=== PATIENT | female | born 1970 | race Caucasian/White ===

== ENCOUNTER → 2021-03-08 | Outpatient (CLI) | payer OTHER, SELFPAY | END | disposition home or self-care (01) | PROVIDERS: PCP Family Medicine; Referring Provider Family Medicine; Visit Provider Family Medicine | DX: U07.1 COVID-19 (principal) | CPT/HCPCS: 87635; U0005; U0003 ==

== ENCOUNTER → 2022-05-12 | Outpatient (CLI) | payer OTHER, SELFPAY ==
[2022-05-12 12:39] LABS: Vitamin B12 553 pg/mL (211-911); Vitamin D,25 Hydroxy 25.8 ng/mL
[2022-05-12 13:01] LABS: Anion Gap 6 (5-15); BUN 14 mg/dL (7-18); Calcium,Total 9.4 mg/dL (8.5-10.1); Chloride 108 mmol/L (98-107); Cholesterol 234 mg/dL (200); Creatinine, Serum 0.74 mg/dL (0.55-1.02); EST Glomerular Filtration Rate 89 mL/min (>60); Est Glom Filt Rate - Afr Amer 108 mL/min (>60); Glucose 96 mg/dL (74-106); High Density Lipoprotein 40 mg/dL; Potassium 3.9 mmol/L (3.5-5.1); Sodium Level 140 mmol/L (136-145); Triglycerides 151 mg/dL; Very Low Density Lipoprotein 30 mg/dL (5-40)
== END | disposition home or self-care (01) ==
LOC: MFPLAB 09:45
PROVIDERS: PCP Nurse Practitioner Family; Referring Provider Nurse Practitioner Family; Visit Provider Nurse Practitioner Family
DX: Z00.00 Encounter for general adult medical examination without abnormal findings (principal); Z13.1 Encounter for screening for diabetes mellitus; Z13.220 Encounter for screening for lipoid disorders
CPT/HCPCS: 36415; 80048; 80061; 82306; 82607

== ENCOUNTER → 2022-06-22 | Outpatient (CLI) | payer OTHER, SELFPAY ==
--- NOTE | 2022-06-22 07:18 | BI_ITS ---
MAMMOGRAPHY - BILATERAL SCREENING REASON FOR EXAM: Female, 51 years old. Routine annual screening examination. PERTINENT HISTORY: Non-contributory. TECHNIQUE: Digital bilateral breast adriane (3D mammographic acquisition) in the CC and MLO projections. 2-D mediolateral oblique (MLO) and craniocaudad (CC) views of both breasts were obtained. CAD: Full Field Digital Mammography with Computer Added Detection was performed. COMPARISON: None. Baseline examination. FINDINGS: Breast Composition: The breasts are heterogeneously dense, which may obscure small masses. There are no dominant masses or suspicious calcifications. There is a asymmetrical mildly prominent right retroareolar duct. Further assessment with ultrasound is recommended. No other significant abnormalities are identified. BI/SCRN MAMM (CAD)W/ADRIANE BILAT IMPRESSION: Further imaging evaluation recommended, as described above. (E) Recall Side: Right Breast ASSESSMENT CATEGORY: BIRADS Category 0: Incomplete. Need additional imaging evaluation. A letter regarding these results will be sent to the patient by the facility within 30 days. Approximately 10% of breast cancers are not detected by mammography. A normal mammogram should not delay biopsy of a clinically suspicious abnormality. Electronically Signed: Wilner Calhoun, at 13:00 EST ,
== END | disposition home or self-care (01) ==
LOC: OPBI 07:15
PROVIDERS: PCP Nurse Practitioner Family; Visit Provider Nurse Practitioner Family
DX: Z12.31 Encounter for screening mammogram for malignant neoplasm of breast (principal)
CPT/HCPCS: 77063; 77067

== ENCOUNTER → 2022-06-30 | Outpatient (CLI) | payer OTHER, SELFPAY ==
--- NOTE | 2022-06-30 08:07 | US_ITS ---
STUDY: ULTRASOUND BREAST - RIGHT REASON FOR EXAM: Female, 51 years old. Abnormal screening mammogram. TECHNIQUE: Axial and longitudinal images of the RIGHT breast were performed with a high resolution ultrasound transducer. # OF IMAGES: 19 COMPARISON: Comparison is made with prior mammogram dated 06/22/2022. FINDINGS: RIGHT Breast: The retroareolar region was examined with ultrasound. The mammographic abnormality corresponds to a 1 cm x 0.6 cm x 0.8 cm cyst. US/Breast Limited Unilateral IMPRESSION: The mammographic abnormality or spines to a 1 cm x 0.6 cm x 0.8 cm cyst. ASSESSMENT CATEGORY: BIRADS Category 2: Benign. A letter regarding these results will be sent to the patient by the facility within 30 days. Electronically Signed: Quan Knight MD at 14:30 EST ,
== END | disposition home or self-care (01) ==
PROVIDERS: PCP Nurse Practitioner Family; Visit Provider Nurse Practitioner Family
DX: R92.8 Other abnormal and inconclusive findings on diagnostic imaging of breast (principal)
CPT/HCPCS: 76642

== ENCOUNTER → 2023-01-02 | Outpatient (CLI) | payer OTHER, SELFPAY ==
[2023-01-02 12:26] LABS: Absolute Lymphocyte Count 1.73 X10^3/uL (0.83-4.51); Basophil# 0.03 X10^3/uL; Basophil% 0.5 % (0-1); Eosinophils% 3.1 % (0-5); Hematocrit 41.6 % (37-47); Hemoglobin 13.6 g/dL (12.0-15.0); Lymphocyte # 1.73 X10^3/ul (0.83-4.51); Mean Corp Hgb Conc 32.7 g/dL (32-36); Mean Corpuscular Hgb 29.5 pg (27.0-32.0); Mean Corpuscular Volume 90.2 fL (81-99); Mean Platelet Vol. 10.1 fl (6.2-12.0); Monocyte# 0.47 X10^3/uL; Monocyte% 7.3 % (0-10); NRBC Flagged by Analyzer 0 % (0-5); Neutrophil # 3.96 X10^3/uL (2.7-7.7); Neutrophil % 61.9 % (47-70); Platelet Count 241 K/mm3 (150-450); RBC Distribution Width CV 11.9 % (11.6-14.6); RBC Distribution Width SD 39.1 fl (35.1-43.9); Red Blood Count 4.61 M/mm3 (4.2-5.4); White Blood Count 6.4 K/mm3 (4.4-11.0)
[2023-01-02 12:41] LABS: Vitamin B12 360 pg/mL (211-911)
[2023-01-02 12:55] LABS: ALB/GLOB Ratio 0.9 RATIO (0.9-2.4); AST(SGOT) 16 U/L (15-37); Alanine Aminotransfer ALT/SGPT 33 U/L (13-56); Albumin, Serum 3.5 g/dL (3.2-5.0); Alkaline Phosphatase 134 U/L (45-117); Anion Gap 5 (5-15); BUN 16 mg/dL (7-18); BUN/Creat Ratio 19.4 RATIO (10-20); Calcium,Total 9.4 mg/dL (8.5-10.1); Chloride 109 mmol/L (98-107); Creatinine, Serum 0.82 mg/dL (0.55-1.02); EST Glomerular Filtration Rate 78 mL/min (>60); Est Glom Filt Rate - Afr Amer 94 mL/min (>60); Ferritin 46 ng/mL (8-252); Globulin 3.9 g/dL (2.2-4.2); Glucose 97 mg/dL (74-106); Protein, Total 7.4 g/dL (6.4-8.2); Sodium Level 138 mmol/L (136-145); Thyroid Stim Hormone (TSH) 1.39 uIU/mL (0.358-3.74)
== END | disposition home or self-care (01) ==
LOC: MFPLAB 10:12
PROVIDERS: PCP Nurse Practitioner Family; Visit Provider Family Medicine
DX: R20.0 Anesthesia of skin (principal)
CPT/HCPCS: 36415; 80053; 82607; 82728; 84443; 85025

== ENCOUNTER → 2023-02-02 | Outpatient (CLI) | payer OTHER, SELFPAY ==
[2023-02-09 14:09] LABS: HPV APTIMA, High Risk Negative (Negative)
== END | disposition home or self-care (01) ==
LOC: LABSPEC 16:29
PROVIDERS: PCP Family Medicine; Referring Provider Nurse Practitioner Women's Health; Visit Provider Nurse Practitioner Women's Health
DX: N89.8 Other specified noninflammatory disorders of vagina (principal)
CPT/HCPCS: 87070; 87205; 87624; 88175; G0145

== ENCOUNTER → 2023-11-09 | Outpatient (CLI) | payer OTHER, SELFPAY ==
--- NOTE | 2023-11-09 13:33 | US_ITS ---
ACR Level 3 findings have been noted. An addendum which confirms receipt of the report will follow. INDICATION: AUB EXAMINATION: Ultrasound US Transvaginal Non-OB TECHNIQUE: Transvaginal (for optimal evaluation of the adnexa) pelvic ultrasound was performed. Grayscale, spectral waveform, and color flow Doppler evaluation of the adnexa. COMPARISON: None. FINDINGS: UTERUS: Anteverted. The uterus measures 8.2 cm in length.. There is a 2.3 cm hypoechoic fibroid. The endometrial stripe is heterogeneous and measures 1.7 cm in AP diameter which is thickened for a postmenopausal patient. RIGHT OVARY: Not visualized. LEFT OVARY: Measures 3.3 x 2.2 x 2.2 cm. Non-enlarged, normal echogenicity. There is normal arterial inflow and venous outflow present in the left ovary. FREE FLUID: None. US/Transvaginal Non- IMPRESSION: Heterogeneous and thickened endometrium for a postmenopausal patient. Differential includes endometrial hyperplasia and endometrial carcinoma. Recommend EYEGLASS LENS GRINDER consult. Fibroid uterus. Electronically Signed: Eduardo Tan MD at 23:33 EDT ,
== END | disposition home or self-care (01) ==
PROVIDERS: Referring Provider Nurse Practitioner Women's Health; Visit Provider Nurse Practitioner Women's Health
DX: N93.9 Abnormal uterine and vaginal bleeding, unspecified (principal)
CPT/HCPCS: 76830

== ENCOUNTER → 2023-12-20 | Outpatient (CLI) | payer OTHER, SELFPAY ==
--- NOTE | 2023-12-20 | EMB_PTH ---
PATIENT: VARSHA AUGUSTE LOC: [facility] U#:[id number] AGE/SX: 53/F ROOM: RE12/20/[address]: MELISSA Grajeda : 1970 BED: DIS: 12/20/2023 SPEC #: [id number] RECD: 12/20/23 11:55 STATUS: CHAD SRINIVASAN #: [id number] ELLIE: 12/20/23 00:[address]: Rachel Oshea NP DEPT: SURGICAL PATHOLOGY RECD BY: Le Ann Tissues: Endometrium, NOS Procedures: Surgery Specimen Level IV HEADER OPERATION: Endometrial biopsy PRE-OP DIAGNOSIS: Abnormal uterine bleeding TISSUE SUBMITTED: Endometrial lining MICROSCOPIC DIAGNOSIS Endometrium, biopsy: Disordered proliferative endometrium. RYANNE/ 12/21/2023 MICROSCOPIC DESCRIPTION Slides are reviewed. GROSS DESCRIPTION Received is one container labeled with the patient's name and not further designated. The specimen consists of multiple fragments of samuels- hemorrhagic soft tissue measuring in aggregate 2.5 x 1.5 x 0.1cm. The entire specimen is submitted in one cassette. RYANNE/ 12/20/2023 TC:5 CPT:62752
== END | disposition home or self-care (01) ==
LOC: LABSPEC 12:06
PROVIDERS: Referring Provider Nurse Practitioner Women's Health; Visit Provider Nurse Practitioner Women's Health
DX: N93.9 Abnormal uterine and vaginal bleeding, unspecified (principal)
CPT/HCPCS: 88305

== ENCOUNTER → 2024-05-06 | Outpatient (CLI) | payer OTHER, SELFPAY ==
[2024-05-06 12:21] LABS: Absolute Lymphocyte Count 1.84 X10^3/uL (0.83-4.51); Basophil# 0.04 X10^3/uL; Basophil% 0.7 % (0-1); Eosinophil# 0.29 X10^3/uL; Eosinophils% 5.1 % (0-5); Hematocrit 42.1 % (37-47); Hemoglobin 13.5 g/dL (12.0-15.0); Lymphocyte # 1.84 X10^3/ul (0.83-4.51); Lymphocyte % 32.5 % (19-41); Mean Corp Hgb Conc 32.1 g/dL (32-36); Mean Corpuscular Volume 90.5 fL (81-99); Mean Platelet Vol. 10.2 fl (6.2-12.0); Monocyte# 0.48 X10^3/uL; Monocyte% 8.5 % (0-10); NRBC Flagged by Analyzer 0 % (0-5); Platelet Count 235 K/mm3 (150-450); RBC Distribution Width CV 13.2 % (11.6-14.6); Red Blood Count 4.65 M/mm3 (4.2-5.4); White Blood Count 5.7 K/mm3 (4.4-11.0)
[2024-05-06 12:43] LABS: Vitamin D,25 Hydroxy 23.9 ng/mL
[2024-05-06 13:12] LABS: AST(SGOT) 17 U/L (15-37); Alanine Aminotransfer ALT/SGPT 30 U/L (13-56); Albumin, Serum 3.5 g/dL (3.2-5.0); Alkaline Phosphatase 129 U/L (45-117); Anion Gap 7 (5-15); BUN 12 mg/dL (7-18); BUN/Creat Ratio 17.5 RATIO (10-20); Chloride 110 mmol/L (98-107); Cholesterol 224 mg/dL (200); Creatinine, Serum 0.69 mg/dL (0.55-1.02); EST Glomerular Filtration Rate 96 mL/min (>60); Est Glom Filt Rate - Afr Amer 116 mL/min (>60); Globulin 3.6 g/dL (2.2-4.2); Glucose 98 mg/dL (74-106); High Density Lipoprotein 54 mg/dL; Potassium 4.1 mmol/L (3.5-5.1); Protein, Total 7.1 g/dL (6.4-8.2); Sodium Level 142 mmol/L (136-145); Triglycerides 131 mg/dL; Very Low Density Lipoprotein 26 mg/dL (5-40)
== END | disposition home or self-care (01) ==
LOC: MFPLAB 09:53
PROVIDERS: PCP Family Medicine; Visit Provider Family Medicine
DX: R07.89 Other chest pain (principal); E55.9 Vitamin D deficiency, unspecified; Z13.220 Encounter for screening for lipoid disorders; Z13.1 Encounter for screening for diabetes mellitus
CPT/HCPCS: 36415; 80053; 80061; 82306; 84443; 85025

== ENCOUNTER → 2025-04-02 | Outpatient (CLI) | payer BC, SELFPAY ==
[2025-04-02 12:28] LABS: Hematocrit 40.0 % (37-47); Hemoglobin 13.5 g/dL (12.0-15.0); Immature Granulocytes Count 0.010 X10^3/uL (0.0-0.0); Mean Corp Hgb Conc 33.8 g/dL (32-36); Mean Corpuscular Volume 88.1 fL (81-99); Mean Platelet Vol. 10.0 fl (6.2-12.0); NRBC Flagged by Analyzer 0 % (0-5); Platelet Count 260 K/mm3 (150-450); RBC Distribution Width CV 12.6 % (11.6-14.6); RBC Distribution Width SD 40.6 fl (35.1-43.9); Red Blood Count 4.54 M/mm3 (4.2-5.4); White Blood Count 5.9 K/mm3 (4.4-11.0)
== END | disposition home or self-care (01) ==
PROVIDERS: PCP Family Medicine; Visit Provider Nurse Practitioner Women's Health
DX: N95.0 Postmenopausal bleeding (principal)
CPT/HCPCS: 36415; 84443; 85025

== ENCOUNTER → 2025-04-24 | Outpatient (CLI) | payer BC, SELFPAY ==
--- NOTE | 2025-04-24 12:56 | US_ITS ---
PROCEDURE: US/Pelvic w/ Transvaginal
== END | disposition home or self-care (01) ==
LOC: US 12:55
PROVIDERS: PCP Family Medicine; Referring Provider Nurse Practitioner Women's Health; Visit Provider Nurse Practitioner Women's Health
DX: N95.0 Postmenopausal bleeding (principal)
CPT/HCPCS: 76830; 76856

== ENCOUNTER → 2025-05-14 | Outpatient (CLI) | payer BC, SELFPAY ==
--- OUTSIDE RECORDS SUMMARY | 2025-05-14 15:37 | XMS RPT_ITS | CCD ---
Author Organization [facility] Care Team Providers Care Artisan Plasterer Name Role Phone MELISSA Mims Referring Provider [phone] Dorie GARCIAS, MELISSA Ramos Attending Provider [phone] DO Lety Parr Primary Care Provider Mario Rae MD Primary Care Physician Mario Rae MD Referring Provider [place] COPPERSMITH HELPER-C, Rachel Attending Physician [phone] Butch Chalon Primary Care Unavailable Rachel Oshea Attending Unavailable Rachel Oshea Attending Unavailable DorieRachel Referring Unavailable Butch, Chalgriselda Primary Care Unavailable Friend, Barrett Attending Unavailable Butch, Chalon Primary Care Unavailable Btuch, Chalon Primary Care Unavailable Butch, Chalon Referring Unavailable Rachel Oshea Attending Unavailable Allergies Allergy Classification Reported Allergen(s) Allergy Type Date of Onset Reaction(s) Facility (1 source) Penicillins Allergy to substance 04-02-2025 Rash [facility] (1 source) Penicillins Drug allergy (disorder) 04-02-2025 [facility] Repository Medications Current Medications Medication Drug Class(es) Dates Sig (Normalized) Sig (Original) [id number] 200 actuat albuterol 0.09 mg/actuat metered dose inhaler (2 sources) beta2-Adrenergic Agonist Start: 02-02-2023 Start: 02-02-2023 take 1 puff(s) by in halation every six hours Albuterol Sulfate Active 2 PUFF INHALATION EVERY 6 HOURS February 02, 2023 12:00am Fluticasone Propion-Salmeter ol (2 sources) Corticosteroid, beta2-Adrenergic Agonist Start: 02-02-2023 Start: 02-02-2023 Fluticasone Pr opion-Salmeterol (Advair Diskus) 100-50 mcg/dose blister with device Active 1 INH INHALATION TWICE A DAY February 02, 2023 12:00am montelukast 10 mg oral tablet (2 sources) Leukotriene Receptor Antagonist Start: 02-02-2023 take 1 tablet by mouth once daily norethindrone acetate 5 mg oral tablet (2 sources) Start: 11-15-2023 End: 04-02-2025 Problems Problem Classification Problem Date Documented Date Episodic/Chronic Asthma (2 sources) Asthma; Translations: [Unspecified asthma, uncomplicated] 02-02-2023 Chronic Menopausal disorders (3 sources) Postmenopausal bleeding; Translations: [Postmenopausal bleeding] Onset: 05-06-2025 04-02-2025 Chronic Comment on above: deferred 2nd EMB. 2023 disordered EMB, did not follow up or take progesterone. Rpt US ordered. Previous lining 1.7cmRx aygestinProbable hysteroscopy D&C w/SM Menstrual disorders (1 source) Menometrorrhagia; Translations: [Excessive and frequent menstruation with irregular cycle] 12-20-2023 Chronic Comment on above: US:lining 1.7cm, fib roid 2.3cm. EMB: Osteoarthritis (2 sources) Arthritis; Translations: [Unspecified osteoarthritis, unspecified site] 02-02-2023 Chronic Other female genital disorders (1 source) Abnormal uterine bleeding; Translations: [Abnormal uterine and vaginal bleeding, unspecified] 02-02-2023 Chronic Other female genital disorders (1 source) Abnormal uterine and vaginal bleeding, unspecified; Translations: [Unspecified disorders of menstruation and other abnormal bleeding from female genital tract] 02-02-2023 Chronic Other female genital disorders (1 source) Unspecified condition associated with female genital organs and menstrual cycle; Translations: [Other specified symptoms associated with female genital organs] 02-02-2023 Episodic Results Test Name Value Interpretation Reference Range Facility Pelvic w/ Transvaginalon Pelvic w/ Transvaginal [facility] [address] [place], [place] [address] Pelvic w/ Transvaginal MR#: [id number] Acct: [id number] Name: VARSHA AUGUSTE Rep #: [id number] : 1970 F 54 From: Quan jack MD PCP: Dr. Mario Rae MD Status: REG CLI Study: Pelvic w/ Transvaginal Date of Exam: 04/24/25 Exam# [id number] Ordering Dr: Rachel Oshea NP COPPERSMITH HELPER -C PROCEDURE: PELVIC W/ TRANSVAGINAL REASON FOR EXAM: PMB TECHNIQUE: Procedure Code: [id number] Modality: US Procedure: PELVIC W/ TRANSVAGINAL COMPARISON: None FINDINGS: LMP: April 19, 2025. Measurements: Uterus: 11.7 cm x 7.3 cm x 5.8 cm with a volume of 258.3 mL Endometrial Thickness: 21 mm. It is hyperechoic. Heterogeneous in appearance. Right Ovary: 3.7 cm x 2.8 cm x 2.5 cm with a volume of 13.7 mL. Left Ovary: Not visualized. Delete tab TRANSABDOMINAL: Uterus: Enlarged uterus. Heterogeneous echotexture. Nabothian cyst. Endometrium: Endometrium is thickened measuring 21 mm. Right ovary: Normal size and echotexture. Left ovary: Not visualized. Other: No large pelvic mass identified. Transvaginal sonography was performed to better visualize the endometrium. TRANSVAGINAL: Uterus: Enlarged heterogeneous uterus. Endometrium: Thickened measuring 21 mm. It is hyperechoic and heterogeneous. Right ovary: Normal size and echotexture. Left ovary: Not visualized. Other adnexal findings: None. Cul-de-sac: No free intraperitoneal fluid identified. Tenderness: No tenderness US/Pelvic w/ Transvaginal IMPRESSION: Heterogeneous uterus. Thickened endometrium measuring 21 mm. Reading Location: [id number] CC: COPPERSMITH HELPER-Barbara Oshea; Dr. Mario Rae MD Banana Carrier: Signed Normal [facility] CBC W/Diff, Automatedon 10-0 Absolute Lymph 1.62 X10 3/uL Normal 0.83-4.51 [facility] Comment on above: Performed By: #### L 501.9520, L100.0100 #### [facility] [address], [address] Absolute Neut 3.6 X10 3/uL Normal 2.0-7.7 [facility] Comment on above: Performed By: #### L 501.9520, L100.0100 #### [facility] [address] [place], [address] Basophils/100 WBC (Bld) 0.3 % Normal 0-1 [facility] Comment on above: Performed By: #### L 501.9520, L100.0100 #### [facility] [address] [place], [address] Eosinophils/100 WBC (Bld) 4.6 % Normal 0-5 [facility] Comment on above: Performed By: #### L 501.9520, L100.0100 #### [facility] [address] [place], [address] Erythrocyte distribution width (RBC) [Ratio] 12.6 % Normal 11.6-14.6 [facility] Comment on above: Performed By: #### L 501.9520, L100.0100 #### [facility] [address] [place], [address] Hematocrit (Bld) [Volume fraction] 40.0 % Normal 37-47 [facility] Comment on above: Performed By: #### L 501.9520, L100.0100 #### [facility] [address] [place], [address] Hemoglobin (Bld) [Mass/Vol] 13.5 g/dL Normal 12.0-15.0 [facility] Comment on above: Performed By: #### L 501.9520, L100.0100 #### [facility] [address] [place], [address] IG% 0.200 Normal 0.0-0.9 [facility] Comment on above: Result Comment: IG% - Immature Granulocytes (promyelocytes, myelocytes and metamyelocytes) > 1% indicates that a LEFT SHIFT is Present. Performed By: #### L 501.9520, L100.0100 #### [facility] [address] [place], [address] Lymphocytes/100 WBC (Bld) 27.4 % Normal 19-41 [facility] Comment on above: Performed By: #### L 501.9520, L100.0100 #### [facility] [address] [place], [address] MCH (RBC) [Entitic mass] 29.7 pg Normal 27.0-32.0 [facility] Comment on above: Performed By: #### L 501.9520, L100.0100 #### [facility] [address] [place], [address] MCHC (RBC) [Mass/Vol] 33.8 g/dL Normal 32-36 [facility] Comment on above: Performed By: #### L 501.95, L100.0100 #### [facility] [address] [place], [address] MCV (RBC) [Entitic vol] 88.1 fL Normal 81-99 [facility] Comment on above: Performed By: #### L 501.95, L100.0100 #### [facility] [address] [place], [address] Monocytes/100 WBC (Bld) 6.6 % Normal 0-10 [facility] Comment on above: Performed By: #### L 501.9520, L100.0100 #### [facility] [address] [place], [address] Neutrophils/100 WBC (Bld) 60.9 % Normal 47-70 [facility] Comment on above: Performed By: #### L 501.9520, L100.0100 #### [facility] [address] [place], [address] Nucleated RBC (Bld) [#/Vol] 0 10*3/uL Normal 0-5 [facility] Comment on above: Performed By: #### L 501.9520, L100.0100 #### [facility] [address] [place], [address] Platelet mean volume (Bld) [Entitic vol] 10.0 fL Normal 6.2-12.0 [facility] Comment on above: Performed By: #### L 501.9520, L100.0100 #### [facility] [address] [place], [address] Platelets (Bld) [#/Vol] 260 10*3/uL Normal 150-450 [facility] Comment on above: Performed By: #### L 501.9520, L100.0100 #### [facility] [address] [place], [address] RBC (Bld) [#/Vol] 4.54 10*6/uL Normal 4.2-5.4 [facility] Comment on above: Performed By: #### L 501.9520, L100.0100 #### [facility] [address] [place], [address] RDW SD 40.6 fl Normal 35.1-43.9 [facility] Comment on above: Performed By: #### L 501.9520, L100.0100 #### [facility] [address] [place], [address] WBC (Bld) [#/Vol] 5.9 10*3/uL Normal 4.4-11.0 [facility] Comment on above: Performed By: #### L 501.9520, L100.0100 #### [facility] [address] [place], [address] Electron Gun Assembler Office Visit Reporton 04-02-2025 Electron Gun Assembler Office Visit Report [facility] [address], [address] [place] [address] OFFICE VISIT Date of Service: 04/02/25 MR#: [id number] Acct: [id number] Name: VARSHA AUGUSTE Rep #: [id number] : 1970 Provider: MELISSA tello Age/Sex: 54/F Location: [facility] Status: Signed Intake Vital Signs 12/20/23 11:08 04/02/25 11:45 04/02/25 11:51 Height 5 ft 7 in 5 ft 7 in 5 ft 7 in Weight: 262 lb 3 oz BMI 41.1 BP 142/82 H Intake Visit Reasons: PMB - see note Chief Complaint: PMB Profile Saw Setup Operator Required: No Is patient in pain?: No Allergies Penicillins (PCN) Allergy (Unknown, Verified 04/02/25 11:44) Rash Medications ???Medication ???Instructions ???Recorded ???Confirmed ???Type albuterol sulfate 90 mcg/actuation 2 puff inhalation Q6H PRN 04/02/25 History aerosol inhaler fluticasone 100 mcg-salmeterol 50 1 inh inhalation BID 02/02/2302/17 History mcg/dose blistr powdr for inhalation (Advair Diskus) montelukast 10 mg tablet 10 mg PO DAILY 02/02/23 04/02/25 H istory norethindrone acetate 5 mg tablet 5 mg PO .COMPLEX #45 tabs 5 04/02/25 Rx Is last menstrual period known: No Post menopausal: Yes Patient : No : No PFSH PFSH Medical History Arthritis Asthma Family History Father Heart disease Mother Hypertension Kidney disease Social History household members: spouse number of children: 4 current occupational status: employed 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 Date Name GA/Weeks Outcome Route Bth Weight Gen Labor Lgth Anesthesia Del Locatn Provider FOB Unknown Mohinder 1995 Unknown Mikal 1998 Unknown Selena 2002 Unknown Lien 2004 HPI PMB - see note Details: VARSHA AUGUSTE is a 54 year old who presents for postmenopausal bleeding X 2 weeks. Varies in amount but very heavy last pm and saturated clothing/pad <1 hour. She was seen November 2023: US indicated endometrial lining 1.7cm, small fibroid. EMB was disordered. She was to take aygestin and misunderstood and since no further bleeding never took it. She has had no other bleeding until this time. ROS Const Constitutional: Reports system reviewed and no additional complaints, except as documented Eyes Eyes: Reports system reviewed and no additional complaints, except as documented GI GI: Denies abdominal pain or change in bowel habits : Reports as per HPI Exam Const General: cooperative and no acute distress Orientation: oriented x3 Resp Effort Inspection: normal respiratory effort General: bladder normal to palpation External Female Exam: normal external appearance and normal appearance of the urethra Urethra: normal appearance of the urethra Speculum Exam - Vagina: normal appearance of the vagina, no lesions, vaginal bleeding (moderate amount, dark color) and nontender Speculum Exam - Cervix: normal appearance of the cervix Bimanual Exam- Vagina Uterus: normal bimanual exam, uterine size normal, bladder normal to palpation, uterine shape normal, uterine mobility normal and non-tender Bimanual Exam- Adnexa, other: normal adnexae, no masses and non-tender OB/External Speculum: vaginal bleeding (moderate amount, dark color) Speculum Exam: vaginal bleeding (moderate amount, dark color) Coding Level of Care Code Off vis,est,level 3 Diagnoses Postmenopausal bleeding N95.0 Assessment and Plan Assessment and Plan (1) Postmenopausal bleeding: Status: Acute Comment: deferred 2nd EMB. 11/2023 disordered EMB, did not follow up or take progesterone. Rpt US ordered. Previous lining 1.7cm Rx aygestin Probable hysteroscopy D C w/SM Orders: Orders Pelvic w/ Transvaginal Today N95.0 - Postmenopausal bleeding CBC W/Diff, Automated Today N95.0 - Postmenopausal bleeding Thyroid Stim Hormone (TSH) Today N95.0 - Postmenopausal bleeding Medications: Changed From norethindrone acetate (Aygestin) 5 mg PO tid until bleeding stops X 24 hr then bid to finish Rx 45 tabs 0RF To norethindrone acetate 5 mg PO tid until bleeding stops X 24 hr then bid to finish Rx 45 tabs 0RF Plan Rx Aygestin Repeat ul (more content not included)... Normal [facility] Thyroid Stim Hormone (TSH)on 04-02-2025 TSH 1.240 uIU/mL Normal 0.300-4.200 [facility] Comment on above: Performed By: #### L 501.9520, L100.0100 #### [facility] [address] [place], [place], [id number] Gram stain for investigation of transfusion reactionOrdered By: Rachel Oshea on 02-02-2023 Microscopic observation Gram stain Nom (Unsp spec) [facility] Thin prep Papanicolaou smear with manual screeningOrdered By: Rachel Dorie on 02-02-2023 Thin prep Papanicolaou smear with manual screening [facility] Absolute lymphocyte countOrd ered By: Lety Parr on 01-02-2023 Lymphocytes Auto (Unsp spec) [#/Vol] 1.73 10*3/uL 0.83-4.51 [facility] Basophil percentageOrdered B y: Lety Parr on 01-02-2023 Basophils/100 WBC (Bld) 0.5 % 0-1 [facility] Bilirubin [Mass/Vol] 0.40 mg/dL 0.20-1.00 [facility] Comment on above: For patients on eltr ombopag therapy, use of [place] TBIL is not recommended. Chloride [Moles/Vol] 109 mmol/L 98-107 [facility] Eosinophils/100 WBC (Bld) 3.1 % 0-5 [facility] Glucose [Mass/Vol] 97 mg/dL 74-106 [facility] Neutrophils (Bld) [#/Vol] 4.0 10*3/uL 2.0-7.7 [facility] Neutrophils/100 WBC (Bld) 61.9 % 47-70 [facility] Potassium [Moles/Vol] 4.0 mmol/L 3.5-5.1 [facility] Protein [Mass/Vol] 7.4 g/dL 6.4-8.2 [facility] Sodium [Moles/Vol] 138 mmol/L 136-145 [facility] WBC (Bld) [#/Vol] 6.4 10*3/uL 4.4-11.0 [facility] Blood erythrocytes count (nu mber/volume)Ordered By: Lety Parr on 01-02-2023 RBC (Bld) [#/Vol] 4.61 10*6/uL 4.2-5.4 [facility] Blood hemoglobin measurement (mass/volume)Ordered By: Lety Parr on 01-02-2023 Hemoglobin (Bld) [Mass/Vol] 13.6 g/dL 12.0-15.0 [facility] Blood lymphocytes/100 leukoc ytesOrdered By: Lety Parr on 01-02-2023 Lymphocytes/100 WBC (Bld) 27.0 % 19-41 [facility] Blood monocytes/100 leukocyt esOrdered By: Lety Parr on 01-02-2023 Monocytes/100 WBC (Bld) 7.3 % 0-10 [facility] Blood platelet mean volumeOr dered By: Lety Parr on 01-02-2023 Platelet mean volume (Bld) [Entitic vol] 10.1 fL 6.2-12.0 [facility] Determination of erythrocyte mean corpuscular volume (MCV)Ordered By: Lety Parr on 01-02-2023 MCV (RBC) [Entitic vol] 90.2 fL 81-99 [facility] Hematocrit Auto (Bld) [Volum e fraction]Ordered By: Lety Parr on 01-02-2023 Hematocrit (Bld) [Volume fraction] 41.6 % 37-47 [facility] - Chemistry and C hemistry - challengeOrdered By: Lety Parr on 01-02-2023 ALP [Catalytic activity/Vol] 134 U/L 45-117 [facility] ALT [Catalytic activity/Vol] 33 U/L 13-56 [facility] CO2 [Moles/Vol] 24.0 mmol/L 21.0-32.0 [facility] Cobalamin (Vitamin B12) [Mass/Vol] 360 pg/mL 211-911 [facility] Globulin (S) [Mass/Vol] 3.9 g/dL 2.2-4.2 [facility] Urea nitrogen/Creatinine [Mass ratio] 19.4 mg/mg 10-20 [facility] - Hematology and Cell countsOrdered By: Lety Parr on 01-02-2023 Erythrocyte distribution width (RBC) [Entitic vol] 39.1 fL 35.1-43.9 [facility] Erythrocyte distribution width (RBC) [Ratio] 11.9 % 11.6-14.6 [facility] Immature granulocytes/100 WBC (Bld) 0.200 % 0.0-0.9 [facility] Comment on above: IG% - Immature Granu locytes (promyelocytes, myelocytes and metamyelocytes) > 1% indicates that a LEFT SHIFT is Present. MCH (RBC) [Entitic mass] 29.5 pg 27.0-32.0 [facility] Nucleated RBC/100 WBC (Bld) [Ratio] 0 % 0-5 [facility] MCHC Auto (RBC) [Mass/Vol]Or dered By: Lety Parr on 01-02-2023 MCHC (RBC) [Mass/Vol] 32.7 g/dL 32-36 [facility] No Panel InformationOrdered By: Lety Parr on 01-02-2023 Estimated GFR (MDRD) Amer 94 mL/min >60 [facility] Comment on above: GFR Calc Estimated GFR (MDRD) Non-Af Amer 78 mL/min >60 [facility] Comment on above: Non- GFR Calc Thyroid Stimulating Hormone (TSH) 1.39 uIU/mL 0.358-3.74 [facility] Platelets bldOrdered By: Kelsie Parr on 01-02-2023 Platelets (Bld) [#/Vol] 241 10*3/uL 150-450 [facility] Serum or plasma albumin angie urement (mass/volume)Ordered By: Lety Parr on 01-02-2023 Albumin [Mass/Vol] 3.5 g/dL 3.2-5.0 [facility] Serum or plasma albumin/glob ulin mass ratioOrdered By: Lety Parr on 01-02-2023 Albumin/Globulin [Mass ratio] 0.9 {ratio} 0.9-2.4 [facility] Serum or plasma calcium angie urement (mass/volume)Ordered By: Lety Parr on 01-02-2023 Calcium [Mass/Vol] 9.4 mg/dL 8.5-10.1 [facility] Serum or plasma creatinine m easurement (mass/volume)Ordered By: Lety Parr on 01-02-2023 Creatinine [Mass/Vol] 0.82 mg/dL 0.55-1.02 [facility] Comment on above: The validity of the calculated GFR & GFRAA in patients over 70 years has not been determined. Clinical correlation is essential. Serum or plasma ferritin jeremy surement (mass/volume)Ordered By: Lety Parr on 01-02-2023 Ferritin [Mass/Vol] 46 ng/mL 8-252 [facility] Serum or plasma urea nitroge n measurement (mass/volume)Ordered By: Lety Parr on 01-02-2023 Urea nitrogen [Mass/Vol] 16 mg/dL 7-18 [facility] Thin prep Papanicolaou smear with manual screeningOrdered By: Lety Parr on 01-02-2023 Thin prep Papanicolaou smear with manual screening 16 U/L 15-37 [facility] Thin prep Papanicolaou smear with manual screening 5 5-15 [facility] Basophil percentageon 2021 Chloride [Moles/Vol] 108 mmol/L 98-107 [facility] Work Phone: Cholesterol [Mass/Vol] 234 mg/dL <200 [facility] Work Phone: Comment on above: <200 mg/dL Desirable 200-240 mg/dL Borderline >240 mg/dL High Risk Glucose [Mass/Vol] 96 mg/dL 74-106 [facility] Work Phone: Potassium [Moles/Vol] 3.9 mmol/L 3.5-5.1 [facility] Work Phone: Sodium [Moles/Vol] 140 mmol/L 136-145 [facility] Work Phone: Triglyceride [Mass/Vol] 151 mg/dL <199 [facility] Work Phone: Comment on above: The drugs N-Acetylcy steine and Metamizole may falsely depress this assay.Serum Triglycerides Reference Interval Normal <150 mg/dL Borderline high 150 - 199 mg/dL High 200 - 499 mg/dL Very High > or = 500 mg/dL Laboratory - Chemistry and C hemistry - challengeon 05-12-2022 CO2 [Moles/Vol] 26.0 mmol/L 21.0-32.0 [facility] Work Phone: Cobalamin (Vitamin B12) [Mass/Vol] 553 pg/mL 211-911 [facility] Work Phone: Urea nitrogen/Creatinine [Mass ratio] 19.0 mg/mg 10-20 [facility] Work Phone: No Panel Informationon 05-12 Estimated GFR (MDRD) Amer 108 mL/min >60 [facility] Work Phone: Comment on above: GFR Calc Estimated GFR (MDRD) Non-Af Amer 89 mL/min >60 [facility] Work Phone: Comment on above: Non- GFR Calc Vitamin D 25-Hydroxy 25.8 ng/mL [facility] Work Phone: Comment on above: Vitamin D 25(OH) Sta tus Range Deficiency <20 ng/mL (50nmol/L) Insufficiency 20 - 30 ng/mL (50 - 75 nmol/L) Sufficiency 30 - 100 ng/mL (75 - 250 nmol/L) Toxicity >100 ng/mL (>250 nmol/L) Serum or plasma calcium angie urement (mass/volume)on 05-12-2022 Calcium [Mass/Vol] 9.4 mg/dL 8.5-10.1 [facility] Work Phone: Serum or plasma cholesterol in HDL measurement (mass/volume)on 05-12-2022 Cholesterol in HDL [Mass/Vol] 40 mg/dL >40 [facility] Work Phone: Comment on above: The drugs N-Acetylcy steine and Metamizole may falsely depress this assay. Reference Range HDL <40 mg/dL Low HDL Cholesterol HDL >or= 60 mg/dL High HDL Cholesterol Serum or plasma cholesterol in VLDL measurement (mass/volume)on 05-12-2022 Cholesterol in VLDL [Mass/Vol] 30 mg/dL 5-40 [facility] Work Phone: Serum or plasma creatinine m easurement (mass/volume)on 05-12-2022 Creatinine [Mass/Vol] 0.74 mg/dL 0.55-1.02 [facility] Work Phone: Comment on above: The validity of the calculated GFR & GFRAA in patients over 70 years has not been determined. Clinical correlation is essential. Serum or plasma low density lipoprotein (LDL) cholesterol measurement (mass/volume)on 05-12-2022 Cholesterol in LDL [Mass/Vol] 164 mg/dL 0-130 [facility] Work Phone: Serum or plasma urea nitroge n measurement (mass/volume)on 05-12-2022 Urea nitrogen [Mass/Vol] 14 mg/dL 7-18 [facility] Work Phone: Thin prep Papanicolaou smear with manual screeningon 05-12-2022 Thin prep Papanicolaou smear with manual screening 6 5-15 [facility] Work Phone: Vital Signs Date Time Vital Sign Value Performing Clinician Jacobi hua 04-02-2025 11:51-0400 Body height 170.18 cm Mario Rae MD Work Phone: [facility] 04-02-2025 11:45-0400 Body mass index (BMI) [Ratio] 41.1 kg/m2 Mario Rae MD Work Phone: [facility] 04-02-2025 11:45-0400 Body weight 118.92 kg Mario Rae MD Work Phone: [facility] 04-02-2025 11:45-0400 Diastolic blood pressure 82 mm[Hg] Mario Rae MD Work Phone: [facility] 04-02-2025 11:45-0400 Systolic blood pressure 142 mm[Hg] Mario Rae MD Work Phone: [facility] 02-02-2023 14:21-0400 Body height 170.18 cm COPPERSMITH HELPER-C Donna Yehudajosselin Work Phone: [facility] 02-02-2023 14:21-0400 Body mass index (BMI) [Ratio] 41.8 kg/m2 COPPERSMITH HELPER-C Donna Mims Work Phone: [facility] 02-02-2023 14:21-0400 Body weight 121.16 kg COPPERSMITH HELPER-C Donna Mims Work Phone: [facility] 02-02-2023 14:21-0400 Diastolic blood pressure 86 mm[Hg] COPPERSMITH HELPER-C Donna Mims Work Phone: [facility] 02-02-2023 14:21-0400 Systolic blood pressure 134 mm[Hg] COPPERSMITH HELPER-C Donna Mims Work Phone: [facility] Encounters Encounter Date Encounter Type Care Provider Facility Start: 07-21-2025 ambulatory Barrett Pete Facility :[facility] Start: 04-24-2025 End: 04-24-2025 ambulatory Rachel Oshea Facility:[facility] Start: 04-02-2025 End: 04-02-2025 Patient encounter procedure Rachel Oshea COPPERSMITH HELPER-C -[facility] Work Phone: Start: 04-02-2025 End: 04-02-2025 ambulatory Mario Rae MD Work Phone: -[facility] Start: 04-02-2025 End: 04-02-2025 ambulatory Mario Rae Facility:[facility] Start: 02-02-2023 End: 02-02-2023 ambulatory COPPERSMITH HELPER-Barbara Mims Work Phone: [facility] Work Phone: Start: 02-02-2023 End: 02-02-2023 Patient encounter procedure COPPERSMITH HELPER-Barbara Mims Work Phone: [facility]-Laboratory, Specimen Work Phone: Start: 02-02-2023 End: 02-02-2023 Patient encounter procedure COPPERSMITH HELPER-Barbara Mims Work Phone: [facility] Work Phone: Start: 01-02-2023 End: 01-02-2023 Patient encounter procedure COPPERSMITH HELPER-Barbara Mims Work Phone: [facility] Start: 06-30-2022 End: 06-30-2022 ambulatory [facility] Work Phone: Start: 06-30-2022 End: 06-30-2022 Patient encounter procedure [facility] Start: 06-22-2022 End: 06-22-2022 ambulatory [facility] Work Phone: Start: 06-22-2022 End: 06-22-2022 Patient encounter procedure [facility] Start: 05-12-2022 End: 05-12-2022 ambulatory [facility] Work Phone: Start: 05-12-2022 End: 05-12-2022 [facility] Procedures Date Procedure Procedure Detail Performing Clinician Start: 02-02-2023 Cytopathology proced ure, preparation of smear, genital source COPPERSMITH HELPER-Barbara Mims Work Phone: Start: 02-02-2023 Investigation of tra nsfusion reaction COPPERSMITH HELPER-Barbara Mims Work Phone: Start: 06-30-2022 Ultrasonography of breast Start: 12-28-2022 Screening mammography Plan of Treatment Date Care Activity Detail Author Start: 04-02-2025 CBC W Auto Different ial panel - Blood [facility] Start: 04-02-2025 Thyroid stimulating hormone measurement [facility] Start: 02-02-2023 Liquid based cervica l cytology screening [facility] Erythrocyte mean cor puscular volume determination [facility] Hematocrit [Volume F raction] of Blood [facility] Hemoglobin [Mass/volume] in Blood [facility] Leukocytes [#/volume] in Blood [facility] Mean corpuscular hem oglobin concentration determination [facility] Mean corpuscular hem oglobin determination [facility] MG Breast - bilateral Screening [facility] Neutrophil count [facility] Neutrophil percent d ifferential count [facility] Path report.final Dx Spec [facility] Platelets [#/volume] in Blood [facility] Red blood cell count [facility] Red cell distributio n width determination [facility] Pelvis [facility] Pelvis [facility] Pelvis transvaginal [facility] Payers Date Payer Category Payer Unknown [id number] 2025 Self-pay [id number] Unknown [id number] Unknown [facility] KAL [id number] Unknown [id number] Unknown [id number] Unknown [id number] [id number] Unknown [id number] Social History Date Type Detail Facility Tobacco smoking stat [facility] Unknown if ever smoked [facility] Work Phone: Start: 1970 Sex Assigned At Female [facility] Start: 02-02-2023 [facility] if [facility] smoked [facility] Start: 02-02-2023 [facility] Never smoked tobacco (finding) [facility] Sex Female [facility] Progress note 04-02-2025 Note Date & Type Note Facility 04-02-2025 Progress note [facility] Evaluation note Note Date & Type Note Facility Evaluation note No assessment information availa ble [facility] Work Phone: Evaluation note Note Date & Type Note Facility Evaluation note Diagnosis Onset Date Abnormal uterine bleeding (AUB) acute Encounter for routine gyneco logical examination noneactive Vaginal burning noneactive [facility] Work Phone: Evaluation note Note Date & Type Note Facility Evaluation note Diagnosis Onset Date Resolution Postmenopausal bleeding acute O ctober 2024 11:44am [facility] Work Phone: Progress note Note Date & Type Note Facility Progress note Note Date/Time April 02, 2025 12:15pm [facility] [address] [place] [address], [address] [place] [address] OFFICE VISIT Date of Service: 04/02/25 MR#: [id number] Acct: [id number] Name: VARSHA AUGUSTE Rep #: [id number] : 1970 Provider: MELISSA Oshea Age/Sex: 54/F Location: [facility] Status: Signed Intake Vital Signs 12/20/23 11:08 04/02/25 11:45 04/02/25 11:51 Height 5 ft 7 in 5 ft 7 in 5 ft 7 in Weight: 262 lb 3 oz BMI 41.1 BP 142/82 H Intake Visit Reasons: PMB - see note Chief Complaint: PMB Profile Saw Setup Operator Required: No Is patient in pain?: No Allergies Penicillins (PCN) Allergy (Unknown, Verified 04/02/25 11:44) Rash Medications ?Medication ?Instructions ?Recorded ?Confirmed ?Type albuterol sulfate 90 mcg/actuation 2 puff inhalation Q 6H PRN 02/02/23 04/02/25 History aerosol inhaler fluticasone 100 mcg-salmeterol 50 1 inh inhalation BID 02/02/23 04/02/25 History mcg/dose blistr powdr for inhalation (Advair Diskus) montelukast 10 mg tablet 10 mg PO DAILY 02/02/2302/17 History norethindrone acetate 5 mg tablet 5 mg PO .COMPLEX #45 tabs 04/02/25 04/02/25 Rx Is last menstrual period known: No Post menopausal: Yes Patient : No : No PFSH PFSH Medical History Arthritis Asthma Family History Father Heart disease Mother Hypertension Kidney disease Social History household members: spouse number of children: 4 current occupational status: employed 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 Date Name GA/Weeks Outcome Route Bth Weight Infant Gen Labor Lgth Anesthesia Del Locatn Provider FOB Unknown Mohinder 1995 Unknown Mikal 1998 Unknown Selena 2002 Unknown Lien 2004 HPI PMB - see note Details: VARSHA AUGUSTE is a 54 year old who presents for postmenopausal bleeding X 2 weeks. Varies in amount but very heavy last pm and saturated clothing/pad <1 hour. She was seen November 2023: US indicated endometrial lining 1.7cm, small fibroid. EMB was disordered. She was to take aygestin and misunderstood and since no further bleeding never took it. She has had no other bleeding until this time. ROS Const Constitutional: Reports system reviewed and no additional complaints, except as documented Eyes Eyes: Reports system reviewed and no additional complaints, except as documented GI GI: Denies abdominal pain or change in bowel habits : Reports as per HPI Exam Const General: cooperative and no acute distress Orientation: oriented x3 Resp Effort & Inspection: normal respiratory effort General: bladder normal to palpation External Female Exam: normal external appearance and normal appearance of the urethra Urethra: normal appearance of the urethra Speculum Exam - Vagina: normal appearance of the vagina, no lesions, vaginal bleeding (moderate amount, dark color) and nontender Speculum Exam - Cervix: normal appearance of the cervix Bimanual Exam- Vagina & Uterus: normal bimanual exam, uterine size normal, bladder normal to palpation, uterine shape normal, uterine mobility normal and non-tender Bimanual Exam- Adnexa, other: normal adnexae, no masses and non-tender OB/External & Speculum: vaginal bleeding (moderate amount, dark color) Speculum Exam: vaginal bleeding (moderate amount, dark color) Coding Level of Care Code Off vis,est,level 3 Diagnoses Postmenopausal bleeding N95.0 Assessment and Plan Assessment and Plan (1) Postmenopausal bleeding: Status: Acute Comment: deferred 2nd EMB. 11/2023 disordered EMB, did not follow up or take progesterone. Rpt US ordered. Previous lining 1.7cm Rx aygestin Probable hysteroscopy D&C w/SM Orders: Orders Pelvic w/ Transvaginal Today N95.0 - Postmenopausal bleeding CBC W/Diff, Automated Today N95.0 - Postmenopausal bleeding Thyroid Stim Hormone (TSH) Today N95.0 - Postmenopausal bleeding Medications: Changed From norethindrone acetate (Aygestin) 5 mg PO tid until bleeding stops X 24 hr then bid to finish Rx 45 tabs 0RF To norethindrone acetate 5 mg PO tid until bleeding stops X 24 hr then bid to finish Rx 45 tabs 0RF Plan Rx Aygestin Repeat ultrasound ordered TSH and CBC today Consulted with Dr Vasquez:will defer EMB and once we have US results, plan hysterscopy D&C with her. 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) Reason for Visit Abnormal uterine ble eding (AUB) Encounter for routine gynecological examination Vaginal burning Chief Complaint Admit Date PMB - see note April 02, 2025 11 :44am Reason for Visit Admit Date Postmenopausal bleeding April 02 11:44am Family History No Family History Records Found Relationship Condition Age at Onset Recorded Date/T ranjeet father Cardiac disease Unknown mother Hypertension Unknown Kidney disorder Unknown Summary Purpose Advance Directives No Advanced Directives Records Found Additional Source Comments Goals (unrecognized section and content) Goals may be documented in a n alternate sectionGoals may be documented in an alternate sectionGoals may be documented in an alternate sectionGoals may be documented in an alternate sectionGoals may be documented in an alternate section Care Teams (unrecognized sec tion and content) Team Status: Active Member Role Status Benedicto Parr DO Primary Care Provider Active Team Status: Inactive Member Role Status MELISSA Tyler Referring Provider Active Rachel Oshea NP, NP-C Attending Provider Active Lety Parr DO Primary Care Provider Active Team Status: Inactive Member Role Status MELISSA Tyler Primary Care Provider Active Lety Parr DO Attending Provider Active Team Status: Inactive Member Role Status Benedicto Parr DO Primary Care Provider Active Rachel Oshea NP, NP-C Attending Provider, Referring Provider Active Team Status: Active Member Role/Relationship Status Benedicto Rae MD Primary care physician Active Team Status: Inactive Member Role/Relationship Status Benedicto Rae MD Primary care physician Active S tart: April 02, 2025 End: April 02, 2025 Mario Rae MD Referring Provider Active Start : April 02, 2025 End: April 02, 2025 Rachel Oshea NP, NP-C Attending physician Active Start: April 02, 2025 End: April 02, 2025 Team Status: Active Member Role/Relationship Status Benedicto Rae MD Primary care physician Active S tart: April 02, 2025 Rachel Oshea NP, COPPERSMITH HELPER-C Attending physician Active Start: April 02, 2025 INFORMATION SOURCE (unrecogn ized section and content) DATE CREATED AUTHOR 05/07/2025 [facility] FOR RECORDS PERTAINING TO PATIENTS WHO ARE OR HAVE BEEN ENROLLED IN A CHEMICAL DEPENDENCY/SUBSTANCEABUSE PROGRAM, SOME INFORMATION MAY BE OMITTED. This clinical summary was aggregated from multiple sources. Caution should be exercised in using it in the provision of clinical care. This summary normalizes information from multiple sources, and as a consequence, information in this document may materially change the coding, format and clinical context of patient data. In addition, data may be omitted in some cases. CLINICAL DECISIONS SHOULD BE BASED ON THE PRIMARY CLINICAL RECORDS. [employer] provides no warranty or guarantee of the accuracy or completeness of information in this document.
[2025-05-14 17:44] LABS: Follicle Stimulating Hormone 5.2 mIU/mL
[2025-05-17 22:07] LABS: Anti-Mullerian Hormone,Serum < 0.015 ng/mL (.)
== END | disposition home or self-care (01) ==
PROVIDERS: Obstetrics & Gynecology; PCP Family Medicine; Visit Provider Family Medicine
DX: N95.0 Postmenopausal bleeding (principal); N92.1 Excessive and frequent menstruation with irregular cycle
CPT/HCPCS: 36415; 82670; 83001; 83516

== ENCOUNTER 2025-06-24 12:03 | Day surgery (SDC) | payer BC, SELFPAY ==
--- NOTE | 2025-06-23 22:33 | HP.PCM_ITS ---
History and Physical Vital Signs 04/02/2511:51 05/14/2512:55 05/14/2512:56 Height 5 ft 7 in 5 ft 7 in 5 ft 7 in Weight: 258 lb 7 oz BMI 40.4 BP 131/68 H Intake Visit Reasons: Consult PMB Welfare Administrator Required: No Is patient in pain?: No Allergies Penicillins (PCN) Allergy (Unknown, Verified 05/14/25 12:55) Rash Medications ?Medication ?Instructions ?Recorded ?Confirmed ?Type albuterol sulfate 90 mcg/actuation 2 puff inhalation Q6H PRN 02/02/2305/14 History aerosol inhaler fluticasone 100 mcg-salmeterol 50 1 inh inhalation BID 02/02/23 05/14/25 H istory mcg/dose blistr powdr for inhalation (Advair Diskus) norethindrone acetate 5 mg tablet 5 mg PO .COMPLEX #45 tabs 05/05/2505/14 Rx Is last menstrual period known: No Post menopausal: Yes Patient : No : No PFSH Medical History Arthritis Asthma Surgical History (Updated 05/14/25 @ 13:42 by Rachel Patricio) S/P dilatation and curettage Family History Father Heart disease Mother Hypertension Kidney disease Social History household members: spouse number of children: 4 current occupational status: employed 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 Postmenopausal Bleeding - Reports two episodes of significant bleeding after more than a year of amenorrhea, both occurring during periods of high stress. - First episode occurred the day of her son's wedding, requiring both a tampon and a pad; bleeding was so heavy that it soaked through both and dripped down her legs. - Second episode occurred recently while moving out of her house and [place] [employer] [place]; bleeding was heavy with clot passage and interfered with daily activities. - Both episodes were followed by prolonged periods (over a year) without bleeding. - Currently experiencing light brown, clear discharge but no active bleeding. - Endometrial biopsy in November 2023 showed disordered proliferative endometrium. - Endometrial thickness measured at 15-20 mm. - Normal Pap smear in 2022. Menstrual History - Last menstrual period was over a year before the first episode of postmenopausal bleeding. Past Surgical History - D&C following a miscarriage during her first ; experienced severe pain and passed a mass about a week later, requiring emergency room visit. Family History - Mother had cervical cancer in her 60s. Current Medications and Supplements - Recently completed a course of medication to stop the most recent episode of heavy bleeding. Past Medical History - Asthma - Arthritis Social History - with children. - Youngest child is in culinary school. - Currently moving out of her house and refinishing hardwood floors, which she believes is contributing to her stress and asthma symptoms. - Reports difficulty with weight management, especially challenging due to her family's eating habits and her daughter's culinary pursuits. - Scheduled for knee replacement surgery but is delaying it until she loses weight. Subjective Sections: PMHx - Asthma - Arthritis PSHx - D&C Social Hx - Relationship status: - Number of children: 3 - Diet habits: Reports difficulty managing weight due to frequent cooking at home ROS: Respiratory: (+) wheezing Gastrointestinal: (-) change in bowel habits Genitourinary: (+) vaginal discharge, (+) urinary urgency, (+) urinary frequency, (+) urinary incontinence Female Reproductive History Menopausal Symptoms: No night sweats History 5 Elective abortions Hx Para 4 Spontaneous abortions Hx # Term Pregnancies Ectopic pregnancies Hx # Pregnancies Multiple births # of living children 4 Past Pregnancies Del. Date Name GA/Weeks Outcome Route Bth Weight Infant Gen Labor Lgth Anesthesia Del Locatn Provider FOB Unknown Mohinder 1995 Unknown Mikal 1998 Unknown Selena 2002 Unknown Lien 2004 ROS Const Constitutional: Denies fatigue, night sweats, weight gain or weight loss ENT ENT: Reports system reviewed and no additional complaints, except as documented Cardio Card: Denies chest pain Resp Resp: Denies cough or dyspnea GI GI: Reports as per HPI; Denies abdominal pain, constipation, nausea or vomiting : Reports urinary incontinence and urinary urgency; Denies nipple discharge, urinary frequency, urinary hesitancy, vaginal discharge, vaginal dryness, vaginal odor or vaginal pruritus Musc Musc: Denies arthralgias, back pain or muscle weakness Skin Skin/Breast: Denies alopecia, change in hair, dry skin, breast mass, breast pain, breast skin changes or nipple discharge Neuro Neuro: Reports system reviewed and no additional complaints, except as documented Psych Psych: Reports system reviewed and no additional complaints, except as documented Endo Endo: Denies cold intolerance, excessive sweating, heat intolerance or polydipsia Gadiel/Lymph Hematologic/Lymphatic: Denies easy bleeding, Denies easy bruising and Denies lymphadenopathy Exam Const General: cooperative, healthy appearing, comfortable, no acute distress and well developed Orientation: alert HENTN Head: normal to inspection and normocephalic Ears: hearing grossly normal bilaterally and external ears normal Nose: external nose normal and nares normal Face and sinus: normal facial exam Neck Neck: normal visual inspection, no lymphadenopathy and trachea midline Thyroid: thyroid normal Chest Chest palpation & inspection: normal inspection of the chest Resp Effort & Inspection: normal respiratory effort Auscultation: clear to auscultation bilaterally Cardio Rate: regular rate Rhythm: regular rhythm Heart Sounds: S1 normal and S2 normal GI Inspection: normal to inspection and non-distended Palpation: soft and no hepatosplenomegaly Musc Other: gross motor intact no deficits, full bilateral strength Skin General: no rashes or lesions noted Neuro General: patient alert, patient awake, moves all extremities and no focal motor deficits Motor: muscle tone normal throughout Extrem General: normal to inspection and no pedal edema Psych Appearance: grossly normal Mental Status: mental status grossly normal Affect: normal affect Speech and Movement: speech and movement normal Coding Level of Care Code Off vis,est,level 4 Diagnoses Postmenopausal bleeding N95.0 Assessment and Plan Assessment and Plan (1) Postmenopausal bleeding: Status: Acute Comment: plan d and c hysteroscopy symphion Orders: Orders Follicle Stimulating Hormone Today N92.1 - Excessive and frequent menstruation with irregular cycle, N95.0 - Postmenopausal bleeding Estradiol Today N92.1 - Excessive and frequent menstruation with irregular cycle, N95.0 - Postmenopausal bleeding Antimullerian Hormone, Serum Today N92.1 - Excessive and frequent menstruation with irregular cycle, N95.0 - Postmenopausal bleeding Plan Assessment/Plan: # Postmenopausal bleeding (N95.0): - Recurrent uterine bleeding after more than one year without menses; ultrasound revealing endometrial lining of approximately 15?20 mm thickness. Previous endometrial biopsy showed disordered proliferative changes. - Scheduled diagnostic and therapeutic hysteroscopic D&C on June 24 to visually assess the endometrial cavity and remove any identified polyps or fibroids. - Discussed potential risks of bleeding, infection, or uterine perforation that could require further intervention. - Instructed patient to use special surgical prep soap from the neck down the evening before and morning of the procedure; to fast from food for 8 hours preoperatively while allowing clear fluids up to 2 hours before the procedure. - Advised that further management, including possible hormonal therapy or hysterectomy, may be considered if pathology results warrant. - Ordered blood work within the next 2 weeks to evaluate menopausal hormone levels. - Patient acknowledges understanding and agrees to proceed. # Abnormal uterine bleeding (N93.9): - See Postmenopausal bleeding above for treatment/management plan. Any additional interventions will be based on hysteroscopic D&C findings and pathology results. # Unspecified urinary incontinence (R32): - Patient experiences urgency with occasional episodes of involuntary leakage. - Referred to urogynecologist Dr. Naomi Daniels for comprehensive evaluation and discussion of treatment options, including pelvic floor physical therapy and potential pharmacotherapy. # Mild intermittent asthma, uncomplicated (J45.20): - Likely exacerbated by airborne irritants secondary to ongoing home floor refinishing. - Lungs are clear on auscultation; no new pharmacologic interventions indicated at this time. - Advised to minimize exposure to dust and continue usual regimen as needed for symptom control. Patient Instructions: - Have your blood drawn within the next two weeks to check your hormone levels and clarify your menopausal status. - You are scheduled for a D&C hysteroscopy on June 24 in the afternoon at the hospital. Use the special cleansing soap from your neck down the night before and the morning of the procedure. Do not eat anything for 8 hours before the procedure; you may have clear liquids up to 2 hours beforehand. The anesthesia team will call you the day before with the exact arrival time. - Contact Dr. Naomi Daniels, urogynecologist, to discuss pelvic floor therapy and other treatment options for your bladder leakage. Her office information has been provided to you.
[2025-06-24] VITALS (10 sets, daily range): BP systolic 144–170; BP diastolic 72–86; PULSE 49–82; RESP 18–20; TEMP 36.2–36.5; O2SAT 97–100; BMI 40.4
--- NOTE | 2025-06-24 | EMB_PTH ---
PATIENT: VARSHA AUGUSTE LOC: [facility] [place] U#:[id number] AGE/SX: 54/F ROOM: RE06/24/[address]: Dr. Keely Vasquez MD : 1970 BED: DIS: 06/24/2025 SPEC #: [id number] RECD: 06/24/25 17:17 STATUS: CHAD REQ #: [id number] ELLIE: 06/24/25 00:[address]: Keely Vasquez DEPT: SURGICAL PATHOLOGY RECD BY: Pio Diaz ENTERED: 06/25/25 08:17 SP TYPE: ENDOM BX/C OTHR DR: Mario Rae MD Tissues: Endometrium, NOS Procedures: Surgery Specimen Level IV HEADER OPERATION: Hysteroscopy, D&C symphion, polypectomy PRE-OP DIAGNOSIS: Postmenopausal bleeding TISSUE SUBMITTED: A. Endometrial polyp MICROSCOPIC DIAGNOSIS A. Endometrium, curettage: - Many fragments of proliferative endometrium, mildly disordered, with focal polypoid features. - Focal endometrial hyperplasia without atypia. - Fragments of myometrium, focal endocervical mucosa. MICROSCOPIC DESCRIPTION Slides are reviewed. GROSS DESCRIPTION A. Received is one container labeled with the patient name and designated endometrial polyp. The specimen consists of multiple fragments of samuels/white tissue weighing 11.2 grams and in aggregate measures 7 x 3 x 1.5 cm. The specimen is totally submitted in seven cassettes. GONZALO 06/25/2025 CPT: 66906
[2025-06-24 12:29] LABS: Internal QC Validated? YES +Cl - CLEAR BKGD; Pregnancy, Urine Negative Negative
[2025-06-24] MEDS: Lactated Ringers 1,000 ML 15 ML IV (12:46)
--- NOTE | 2025-06-24 13:31 | PCM.PRE.AN2 ---
ASA Classification* ASA Classification ASA Classification: 3 Assessment & Plan Anesthesia* Anesthesia Assessment Anesthesia Assessment: Discussed sedation and/or anesthesia options, risks, benefits, and alternatives with patient/parents/legal guardian/POA. Questions invited. The patient/parents/legal guardian/POA seems to understand and agrees to proceed with anesthesia plan. Reviewed the physical assessment, medical history, allergy history and patient home medications list prior to surgery/procedure/anesthetic and documented any changes. Performed airway and anesthesia risk assessments. Anesthesia Type Anesthesia Type: MAC History Source History Obtained from:: Patient and Chart Anesthesia Focused Assessment* Temperature: 97.7 F Pulse Rate: 82 Blood Pressure: 153/72 Respiratory Rate: 18 Pulse Ox: 99 Oxygen Delivery Method: Room Air Airway Assessment Mouth opens: >3 cm Mallampati Score: II Teeth Condition: Caps/Crowns (Patient has a crown on #4. It is tight.) Neck Range of motion (ROM): Limited ROM (Slight Decrease) Labs Anesthesia Preop lab: CBC WBC, (4.4-11.0) 5.9 K/mm3 04/02/25, 12: RBC, (4.2-5.4) 4.54 M/mm3 04/02/25, 12:06 Hgb, (12.0-15.0) 13.5 g/dL 04/02/25, 12:06 Hct, (37-47) 40.0 % 04/02/25, 12:06 Plt Count, (150-450) 260 K/mm3 04/02/25, 12:06 CHEMISTRY Potassium, (3.5-5.1) 4.1 mmol/L 05/06/24, 09:54 Sodium, (136-145) 142 mmol/L 05/06/24, 09:54 BUN, (7-18) 12 mg/dL 05/06/24, 09:54 Creatinine, (0.55-1.02) 0.69 mg/dL 05/06/24, 09:54 Glucose, (74-106) 98 mg/dL 05/06/24, 09:54 TSH, (0.300-4.200) 1.240 uIU/mL 04/02/25, 12:06 COAG Urine Test Negative Negative Today, 12:05 [facility]st Clinic Negative 12/20/23, 11:16 Pre-Assessment Diagnosis/Proposed Procedure Planned Operative Procedure(s): Hysteroscopy,D&C Symphion Anesthesia History Anesthesia 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 When Was Last Pacemaker Check QUESTION #4 FULL TEXT: You/Your Family Experience fever (hyperthermia) with Anesthesia Last Oral Intake Last Oral intake: Last Oral Intake NPO since 22:00 06/24/25 12:39 Meds taken in AM with sips of No 06/24/25 12:39 water? Meds patient instructed to take am of surgery PONV PONV - training systems officer: PONV - training systems officer Female Yes 06/16/25 11:22 HX of Motion Sickness No 06/16/25 11:22 HX of N/V After Surgery No 06/16/25 11:22 Non-Smoker Yes 06/16/25 11:22 Duration of Surgery greater No 06/16/25 11:22 than 60 minutes Number of Risk Factors 2 06/16/25 11:22 PONV Score Moderate Risk 06/16/25 11:22 Height & Weight Height & Weight: Anesthesia: Height & Weight Height 5 ft 7 in 06/24/25 12:39 Weight: 117 kg 06/24/25 12:39 Body Mass Index (BMI) 40.4 06/24/25 12:39 Respiratory Assessment Respiratory Assessment - training systems officer: Respiratory Tract Infection Hx - training systems officer Hx Respiratory Tract Infection No 06/16/25 11:22 STOP Sleep Apnea STOP Sleep Apnea - training systems officer: STOP Sleep Apnea - training systems officer Hx Hypertension No 06/16/25 11:22 Hx Sleep Apnea No 06/16/25 11:22 CPAP BIPAP Do you snore loudly (louder No 06/16/25 11:22 than talking or can be heard Do you often feel tired/ No 06/16/25 11:22 fatigued/ sleepy during daytime? Has anyone observed you stop No 06/16/25 11:22 breathing during sleep? STOP Results Negative 06/16/25 11:22 QUESTION #5 FULL TEXT : Do you snore loudly (louder than talking or can be heard through closed doors)? 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 Specify any problems Hx of Preganancy in last 3 No 06/16/25 11:22 Months Nurse Filling Out Transfusion VCHRISTIN 06/16/25 11:22 & Questions: Date: 06/16/25 06/16/25 11:22 Time: 11:23 06/16/25 11:22 Patient unable to answer at this time (ie. confused, unrespo /Reproduction History /Reproductive History - training systems officer: /Reproductive Hx- training systems officer Hx Now No 06/16/25 11:22 Gestational Age (in weeks): EDC: Hx Hx Para Hx Section SAB No 06/16/25 11:22 Does the father of the baby or his family experience fever w Father of the baby Malignant Hypertension history comment Active Medications Active Medications: Current Medications Generic Name Dose Route Start Last Admin Trade Name Freq PRN Reason Stop Dose Admin Lactated Ringer's 1,000 mls @ 15 mls/hr 06/24/25 12:15 06/24/25 12:46 IV 15 mls/hr .Q48H JESUS Administration PFSH Medical History Wears glasses Post-menopausal Alcohol use Gastric reflux Shortness of breath on exertion Arthritis Asthma Home Medications ?Medication ?Instructions ?Recorded ?Last Taken ?Type albuterol sulfate 90 mcg/actuation 2 puff inhalation Q6H PRN 02/02/23 Unknown History aerosol inhaler shortness of breath or wheezing fluticasone 100 mcg-salmeterol 50 1 inh inhalation BID 02/02/23 Unknown History mcg/dose blistr powdr for inhalation (Advair Diskus) norethindrone acetate 5 mg tablet 5 mg PO .COMPLEX #45 tabs 05/05/25 Unknown Rx acetaminophen 325 mg tablet 325 mg PO Q6H PRN pain 06/16/25 Unknown History (Tylenol) Allergy/AdvReac Type Severity Reaction Status Date / Time Penicillins (PCN) Allergy Unknown Rash Verified 06/24/25 12:38 Family History Father Heart disease Mother Hypertension Kidney disease Surgical History S/P dilatation and curettage Social History household members: spouse number of children: 4 current occupational status: employed 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 Physical Exam Resp clear to auscultation bilaterally
[2025-06-24] MEDS: Lactated Ringers 1,000 ML 1000 ML IV (14:05)
[2025-06-24] MEDS: Midazolam 2 MG/2 ML Syringe IV (14:05)
[2025-06-24] MEDS: fentaNYL 100 MCG/2 ML Ampul IV (14:10)
[2025-06-24] MEDS: Lidocaine 1% (5 ml sdv) 5 ML Vial 15 ML IV (14:27)
--- NOTE | 2025-06-24 14:44 | OP.PCM_ITS ---
Multi Select Codes Urinary/Genital Urinary/Genital CPT Codes: 92503 Hysteroscopy, Polypectomy, Symphion Operative Report (Standard) Operative Information Date of Procedure: 06/24/25 Pre-Operative Diagnosis: see problem list details Post-Operative Diagnosis: same Surgery/Procedure Performed: dilation and curettage hysteroscopy symphion polypectomy assistant corporate controller: No Type of Anesthesia: IV Sedation RN Documented Start/Stop Times: Operation Date: 06/24/25 13:25 Case Time Into Pre-Op 06/24/25 12:03 Out of Pre-Op 06/24/25 13:59 Anesthesia Start 06/24/25 14:05 Into Room 06/24/25 14:05 Procedure Start 06/24/25 14:28 Procedure End 06/24/25 14:42 Procedure Start Time: 14:28 Procedure Stop Time: 14:42 Select all DRAINS/GRAFTS/IMPLANTS that apply: None Estimated Blood Loss: 25 Specimen collected: Yes Description of specimen(s) removed: endometrial curretings and polyp Description of surgery: Patient was prepped and draped in a normal sterile fashion under MAC anesthesia. A weighted speculum was placed in the vagina and the anterior lip of the cervix was grasped with a single-tooth tenaculum. A paracervical block was placed with 1% lidocaine. Cervix was progressively dilated to allow passage of a 5 mm hysteroscope. The lining was fully visualized and noted to have thickened llining with multiple polypoid lesions seen . Uterine sounded to 8 cm. Using the symphion device, the lesions were progressively removed without complications. Direct visual curettage was performed using the device , and all specimens were sent to pathology. All instruments were removed from the vagina and excellent hemostasis was noted. Patient was awoken and taken to recovery in stable condition. Surgical Findings: abnormal lesions in the lining Complications Complications: No
--- NOTE | 2025-06-24 14:45 | DCINST_ITS ---
Discharge Instructions DC O2, CPAP, BIPAP needs Home O2 Discharge instructions: No Dressing / Incision Discharge Activity: Return to Normal Activity, May Shower and May Take a Tub Bath (after 1 week) May resume sexual activity in: 1-2 weeks Weight Bearing Status: Weight bearing as tolerated Lifting Restrictions: none Dressing / Incision Call your doctor if you observe: Fever of 101 or Higher, Using more than 1 pad per hour, Shortness of breath and Uncontrolled pain Follow Up Care Please Follow Up With: Keely Vasquez MD When: Call [phone] to schedule appointment. Test Results: Test results from this visit will be discussed in further detail at your follow- up appointment, if applicable. Discharge Plan Admission Attending Provider: Keely Vasquez Primary Care Provider: Mario Rae Instructions Print Language: Andorran Discharge Orders/Prescriptions Prescriptions: No Action fluticasone propion-salmeterol [Advair Diskus] 100-50 mcg/dose blister with device 1 inh inhalation BID albuterol sulfate 90 mcg/actuation HFA aerosol inhaler 2 puff inhalation Q6H PRN (Reason: shortness of breath or wheezing) acetaminophen [Tylenol] 325 mg tablet 325 mg PO Q6H PRN (Reason: pain) norethindrone acetate 5 mg tablet 5 mg PO .COMPLEX Qty: 45 0RF Rx Instructions: 5 mg PO tid until bleeding stops X 24 hr then bid to finish Rx Referrals / Follow Up: Mario Rae MD [Primary Care Provider, Family Practice] Disposition Disposition (needs filled in before D/C Order can be placed): Home, Self Care
--- NOTE | 2025-06-24 14:52 | PCM.POST.ANE ---
Anesthesia: Postop Eval I Current Vital Signs Temperature: 97.6 F Pulse Rate: 77 Blood Pressure: 144/82 Respiratory Rate: 20 Pulse Ox: 98 Oxygen Delivery Method: Room Air Assessment Airway patent: Yes Spontaneous unlabored respirations: Yes Mental status: Awake and Calm nausea: No Vomiting: No Anesthesia Complication: No Fluid Hydration Crystalloid volume administer (ml): 800 Total IV fluid infused: 800 Progress Note Anesthesia document: Postop Eval 1 completed: Yes
[2025-06-24] MEDS: TRANEXAMIC ACID 1,000 MG in 0.9% Normal Saline (100mL Bag) 100 ML 440 MG IV (14:55)
--- NOTE | 2025-06-24 15:11 | POSTOPAN2_ITS ---
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 Spontaneous unlabored Yes 06/24/25 14:53 ASSISTANT [email or web address] respirations Mental status Awake,Calm 06/24/25 14:53 ASSISTANT [email or web address] nausea No 06/24/25 14:53 ASSISTANT [email or web address] Vomiting No 06/24/25 14:53 ASSISTANT [email or web address] Anesthesia Postop Eval I: Fluid Summary Crystalloid volume administer 800 06/24/25 14:53 ASSISTANT [email or web address] (ml) Colloids volume administered ( ml) Blood Product volume administered (ml) Total IV fluid infused 800 06/24/25 14:53 ASSISTANT [email or web address] Anesthesia Postop Eval I: Summary Notes Anesthesia Complication No 06/24/25 14:53 ASSISTANT [email or web address] Anesthesia Complication Comment: Post-operative progress note Anesthesia: Postop Eval II Evaluation Mental status: Awake and Calm Pain Level: 1 nausea: No Vomiting: No Complications Anesthesia Complication: No
--- NOTE | 2025-06-24 15:11 | PCM.POSTANE2 ---
Anesthesia Postop Eval I Sum Postop Eval Completion status Anesthesia document: Postop Eval 1 completed: Yes Anesthesia Postop Eval I Summary Anesthesia Postop Eval I Summary: Anesthesia Postop Eval I: Assessment Summary Airway patent Yes 06/24/25 14:53 [email or web address] Spontaneous unlabored Yes 06/24/25 14:53 [email or web address] respirations Mental status Awake,Calm 06/24/25 14:53 [email or web address] nausea No 06/24/25 14:53 [email or web address] Vomiting No 06/24/25 14:53 [email or web address] Anesthesia Postop Eval I: Fluid Summary Crystalloid volume administer 800 06/24/25 14:53 [email or web address] (ml) Colloids volume administered ( ml) Blood Product volume administered (ml) Total IV fluid infused 800 06/24/25 14:53 [email or web address] Anesthesia Postop Eval I: Summary Notes Anesthesia Complication No 06/24/25 14:53 [email or web address] Anesthesia Complication Comment: Post-operative progress note Anesthesia: Postop Eval II Evaluation Mental status: Awake and Calm Pain Level: 1 nausea: No Vomiting: No Complications Anesthesia Complication: No
== END 2025-06-24 16:00 | disposition home or self-care (01) ==
LOC: SDC 12:04 → AC 12:05
PROVIDERS: PCP Family Medicine; Referring Provider Obstetrics & Gynecology; Visit Provider Obstetrics & Gynecology
PROC: 0UB98ZZ Excision of Uterus, Via Natural or Artificial Opening Endoscopic (ICD-10-PCS; CPT 58558; principal; 2025-06-24 13:10)
DX: N84.0 Polyp of corpus uteri (principal); J45.20 Mild intermittent asthma, uncomplicated; R32 Unspecified urinary incontinence; N95.0 Postmenopausal bleeding; K21.9 Gastro-esophageal reflux disease without esophagitis
CPT/HCPCS: 58558; 00952; 81025; 86850; 86900; 86901; 88305